=== PATIENT | female | born 1955 | race Hispanic/Latino ===

== ENCOUNTER 2020-05-04 07:22 | Outpatient (CLI) | payer BC ==
--- NOTE | 2020-05-04 09:18 | Ultrasound Report ---
ULTRASOUND THYROID INDICATION / CLINICAL INFORMATION: THYROID NODULE. COMPARISON: None available. FINDINGS: RIGHT LOBE: Size = 7.5 3.2 x 3.3 cm. - Echogenicity: Normal. - Nodules < 1 cm: 0.8 x 0.7 x 0.7 cm nodule right upper pole. - Nodules >= 1 cm or Suspicious Nodules: There are numerous right-sided thyroid nodules. The largest nodule measures 4.1 x 4.0 x 3.4 cm in the inferior pole and is predominantly solid with increased vas cularity and multiple small internal echogenic foci. Additional smaller nodules measures 0.9 x 0.8 x 0.1 cm, 1.2 x 0.7 x 1.4 cm, and 1.2 x 0.8 x 0.9 cm throughout the mid and upper pole region. LEFT LOBE: Size = 6.7 x 2.0 x 1.8 cm. - Echogenicity: Normal. - Nodules < 1 cm: 0.8 x 0.7 x 0.6 cm nodule in the left midpole demonstrates a well-defined border an d is partially cystic and heterogeneous. - Nodules >= 1 cm or Suspicious Nodules: Left lower pole nodule measures 1.2 x 0.8 x 1.1 cm and is re latively isoechoic to the thyroid parenchyma with an ill-defined border. ISTHMUS: No significant abnormality. Thickness = 0.7 cm. - Nodules < 1 cm: None. - Nodules >= 1 cm or Suspicious Nodules: 1.2 x 0.6 x 0.8 cm nodule at the isthmus is minimally hypoec hoic demonstrates a smooth border and multiple hyperechoic foci. LYMPH NODES: No abnormal lymph nodes. PARATHYROID GLANDS: No abnormal parathyroid gland identified. ADDITIONAL FINDINGS: None. IMPRESSION: 1. Findings consistent with multinodular thyroid goiter. 2. The most concerning nodule is in the right lower pole measuring 4.1 x 4.0 x 3.4 cm and is predomin antly solid with increased vascularity. Consider Ti RADS 4, FNA is recommended due to its size. NOTE: Nodule size based on mean (average) size of 3 dimensions. NOTE: Nodules < 1 cm do not typically require follow-up or FNA unless there are suspicious features ( JENAE, 2015) ACR TI-RADS Thyroid Nodule Recommendations TI-RADS 1 (0 points) ----- BENIGN. No Fine Needle Aspirate biopsy (FNA) or follow-up. TI-RADS 2 (1-2 points) -- NOT SUSPICIOUS. No FNA or follow-up. TI-RADS 3 (3 points) ----- MILDLY SUSPICIOUS. Follow up in 1 year if >= 1.5 cm. FNA if >= 2.5 cm. TI-RADS 4 (4-6 points) -- MODERATELY SUSPICIOUS. Follow up in 1 year if >= 1.0 cm. FNA if >= 1.5 cm. TI-RADS 5 (7+ points) --- HIGHLY SUSPICIOUS. Follow up in 1 year if >= 0.5 cm. FNA if >= 1.0 cm. Reference: ACR Thyroid Imaging, Reporting and Data System (TI-RADS): White Paper of the ACR TI-RADS C ommittee. J AM Allyson Radiol 2017;14:587-595. (Additional recommendations based on [place] [employer] 2015 guidelines.) Signer Name: Enoc Gutiérrez MD Signed: 05/04/2020 9:13 AM Workstation Name: [id number]
== END 2020-05-04 07:23 | disposition home or self-care (01) ==
LOC: US 07:22
PROVIDERS: ATTEND Internal Medicine
DX: E07.9 Disorder of thyroid, unspecified (principal)
CPT/HCPCS: 76536

== ENCOUNTER 2020-05-21 10:50 | Outpatient (CLI) | payer BC ==
[2020-05-21] MEDS ORDERED: LIDOCAINE (1%) 10 MG/1 ML VIAL 20 ML MDV ONE (13:14)
--- NOTE | 2020-05-21 13:57 | Short Stay Summary ---
Short Stay Documentation Date of service: 05/21/20 - History Principal diagnosis: right thyroid mass - Allergies and Medications Current Medications: Allergies nitrofurantoin [From Macrodantin] Allergy (Verified 05/21/20 12:44) Rash - Physical exam General appearance: no acute distress HEENT: Other (slight prominent right thyroid lobe. palpable nodule.) - Brief post op/procedure progress note Date of procedure: 05/21/20 Pre-op diagnosis: right thyroid mass Post-op diagnosis: same Procedure: US thyroid FNA and Biopsy Anesthesia: local Findings: 4cm right thyroid mass Surgeon: NARENDRA DODSON Estimated blood loss: none Pathology: list (FNA x 2, Rotex x 1) Specimen disposition: to lab Condition: stable - Hospital course Hospital course: uneventful - Disposition Condition at discharge: Good Disposition: DC-01 TO HOME OR SELFCARE Short Stay Discharge Plan Follow up with: KAVITA MULLER MD [Primary Care Provider] - 7 Days
[2020-05-21 14:03] VITALS: BP 150/82
--- NOTE | 2020-06-01 08:06 | Ultrasound Report ---
ULTRASOUND BIOPSY THYROID HISTORY: Right thyroid mass DESCRIPTION OF PROCEDURE: Informed consent was obtained. Sterile technique was utilized. 1% lidocaine for skin anesthesia. Using ultrasound guidance, 2 fine-needle aspirations and one Rotex biopsy was o btained from a 4.4 cm mass at the inferior pole of the right thyroid lobe. The samples were deemed ad equate by the pathologist on site. No complications. IMPRESSION: Successful ultrasound-guided biopsy of a 4.4 cm right thyroid mass. Signer Name: Ata Lee Jr, MD Signed: 05/21/2020 3:19 PM Workstation Name: [id number]
== END 2020-05-21 14:15 | disposition home or self-care (01) ==
LOC: US 10:50 → CATHLABREC 10:50
PROVIDERS: ATTEND Internal Medicine
DX: E04.2 Nontoxic multinodular goiter (principal); Z79.899 Other long term (current) drug therapy
CPT/HCPCS: 60100; 76942; 88112; 88172; 88173